=== PATIENT | male | born 1955 | race Hispanic/Latino ===

== ENCOUNTER 2021-09-18 13:28 | Emergency (ER) | payer BC, MEDICARE, OTHER ==
[~2021-09-18] VITALS: Ht 175.3 cm; Wt 86.6 kg
[~2021-09-18 13:28] MED LIST: ASPIR 8181 MG PO; CLOPIDOGREL75 MG PO; Calcium Carbonate PO; LEVOTHYROXINE50 MCG PO; LEXAPRO10 MG PO; LISINOPRIL-HCT1 EAC1 PO; METFORMIN HCL500 MG PO; METOPROLOL SUCC50 MG PO; NICODERM CQ1 EAC1 TOP; PANTOPRAZOLE SO40 MG PO; PROTONIX40 MG PO; SIMVASTATIN80 MG PO; ZETIA10 MG PO
[2021-09-18] MEDS ORDERED: CLEOCIN HCL300 MG PO (15:47)
[2021-09-18 16:05] VITALS: BP 165/89
== END 2021-09-18 16:07 | disposition home or self-care (01) ==
LOC: ER 15:16
DX: E11.621 Type 2 diabetes mellitus with foot ulcer (principal); L97.529 Non-pressure chronic ulcer of other part of left foot with unspecified severity; L03.116 Cellulitis of left lower limb; I10 Essential (primary) hypertension; Z95.5 Presence of coronary angioplasty implant and graft; F17.210 Nicotine dependence, cigarettes, uncomplicated
CPT/HCPCS: 99283

== ENCOUNTER 2021-10-04 14:25 | Emergency (ER) | payer MEDICARE, OTHER ==
[~2021-10-04] VITALS: Ht 175.3 cm; Wt 86.6 kg
[~2021-10-04 14:25] MED LIST changes: +CLEOCIN HCL300 MG PO
== END 2021-10-04 17:16 | disposition home or self-care (01) ==
LOC: ER 14:38
DX: S62.112A Displaced fracture of triquetrum [cuneiform] bone, left wrist, initial encounter for closed fracture (principal); S02.2XXA Fracture of nasal bones, initial encounter for closed fracture; S00.83XA Contusion of other part of head, initial encounter; M25.561 Pain in right knee; W01.0XXA Fall on same level from slipping, tripping and stumbling without subsequent striking against object, initial encounter; Y93.01 Activity, walking, marching and hiking; Y92.89 Other specified places as the place of occurrence of the external cause; I10 Essential (primary) hypertension; E11.9 Type 2 diabetes mellitus without complications
CPT/HCPCS: 70450; 70480; 72125; 99283

== ENCOUNTER 2022-04-17 17:12 | Emergency (ER) | payer MEDICARE ==
[~2022-04-17] VITALS: Ht 175.3 cm; Wt 86.6 kg
[2022-04-17] MEDS ORDERED: DOXYCYCLINE HY100 MG PO (20:13)
== END 2022-04-17 20:18 | disposition home or self-care (01) ==
LOC: ER 17:17
DX: M79.605 Pain in left leg (principal); M79.604 Pain in right leg; L03.116 Cellulitis of left lower limb; L03.115 Cellulitis of right lower limb; I10 Essential (primary) hypertension; E11.9 Type 2 diabetes mellitus without complications; Z95.5 Presence of coronary angioplasty implant and graft
CPT/HCPCS: 99282

== ENCOUNTER 2022-08-09 19:49 | Emergency (ER) | payer MEDICARE ==
[~2022-08-09] VITALS: Ht 175.3 cm; Wt 86.6 kg
[~2022-08-09 19:49] MED LIST changes: +DOXYCYCLINE HY100 MG PO
[2022-08-09] MEDS ORDERED: KETOROLAC TROMETHAMINE 30 MG/ML VIAL IV STA (21:14)
[2022-08-09] MEDS ORDERED: METOCLOPRAMIDE HCL 10 MG/2ML VIAL IV ONE (21:15)
[2022-08-09 22:00] LABS: BASOPHILS # (AUTO) 0.1 (0.0-0.1); BASOPHILS % 0.5 % (0.0-1.0); EOSINOPHILS # (AUTO) 0.2 (0.0-0.4); EOSINOPHILS % 2.5 % (0.0-6.0); HEMATOCRIT 44.3 % (38.2-49.6); HEMOGLOBIN 15.2 g/dL (14.0-18.0); LYMPHOCYTES # (AUTO) 4.5 (1.0-3.2); LYMPHOCYTES % 46.4 % (18.0-39.1); MEAN CORPUSCULAR HEMOGLOBIN 34.3 pg (28-32); MEAN CORPUSCULAR HGB CONC 34.3 g/dL (31-35); MONOCYTES # (AUTO) 0.7 (0.2-0.8); MONOCYTES % 7.6 % (4.4-11.3); NEUTROPHILS # (AUTO) 4.1 (2.1-6.9); NEUTROPHILS % 42.9 % (38.7-80.0); PLATELET COUNT 244 x10e3/uL (140-360); RED BLOOD COUNT 4.43 x10e6/uL (4.3-5.7); RED CELL DISTRIBUTION WIDTH 13.8 % (11.7-14.4)
[2022-08-09 22:12] LABS: INR 0.9; PROTHROMBIN TIME 12.6 seconds (11.9-14.5)
[2022-08-09 22:13] LABS: PARTIAL THROMBOPLASTIN TIME 30.5 seconds (23.8-35.5)
[2022-08-09 22:21] LABS: ALBUMIN 3.8 g/dL (3.5-5.0); ALBUMIN/GLOBULIN RATIO 1.3 (0.8-2.0); ANION GAP 15.6 mmol/L (8-16); CREATININE, SERUM 0.83 mg/dL (0.72-1.25); POTASSIUM 3.6 mmol/L (3.5-5.1)
[2022-08-09] MEDS ORDERED: NAPROXEN375 MG PO (23:46)
[2022-08-09] MEDS ORDERED: ONDANSETRON ODT4 MG PO (23:46)
== END 2022-08-10 01:25 | disposition home or self-care (01) ==
LOC: ER 20:08
DX: R51.9 Headache, unspecified (principal); M54.2 Cervicalgia; R11.2 Nausea with vomiting, unspecified
CPT/HCPCS: 36415; 70450; 72125; 80053; 85025; 85610; 85730; 99282; J1885; J2765